=== PATIENT | male | born 1990 | race Hispanic/Latino ===

== ENCOUNTER 2017-09-19 00:49 | Emergency (ER) | payer SELFPAY ==
[2017-09-19 01:08] VITALS: TEMP 97.9
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
[2017-09-19 01:40] LABS: BASO % 0.7 % (0.0-2.0); EOS # 0.5 K/uL (0.0-0.7); EOS % 7.6 % (0.0-4.0); HEMOGLOBIN 14.6 g/dL (12.0-18.0); LYMPH % 32.1 % (20.0-40.0); MEAN CELL VOLUME 91.2 fl (80.0-94.0); MEAN CORPUSCULAR HEMOGLOBIN 31.2 pg (27.0-31.0); MEAN CORPUSCULAR HGB CONC 34.2 g/dL (33.0-37.0); MEAN PLATELET VOLUME 7.4 fl (7.2-11.7); MONO # 0.8 K/uL (0.0-0.8); MONO % 12.5 % (0.0-10.0); NEUT % 47.1 % (50.0-75.0); NRBC % 0.1 % (0.0-0.0); RBC 4.67 Mil/uL (4.40-5.90); RED CELL DISTRIBUTION WIDTH 13.2 % (11.5-14.5); WHITE BLOOD COUNT 6.3 K/uL (4.8-10.8)
[2017-09-19 01:49] LABS: ALB/GLOB RATIO 1.5 (1.0-2.1); ALBUMIN 4.2 g/dL (3.5-5.0); ALT/SGPT 37 U/L (21-72); AST/SGOT 33 U/L (17-59); BLOOD UREA NITROGEN 13 mg/dl (9-20); CALCIUM 9.5 mg/dL (8.4-10.2); GFR AFRICAN-AMERICAN > 60; GFR NON-AFRICAN AMERICAN > 60
[2017-09-19 01:59] VITALS: BP 136/65; RESP 14
[2017-09-19 02:04] LABS: BARBITURATES, UR NEGATIVE (NEGATIVE); BENZODIAZEPINES, UR NEGATIVE (NEGATIVE); OPIATES, UR NEGATIVE (NEGATIVE); PHENCYCLIDINE, UR NEGATIVE (NEGATIVE)
[2017-09-19 03:30] VITALS: PULSE 56
[2017-09-19 03:51] VITALS: O2SAT 98
--- NOTE | 2017-09-19 20:34 | CARD ---
APPROVED REPORT EKG Measurement Heart [id number] <Conclusion> Normal sinus rhythm ST elevation, probably due to early repolarization Borderline ECG
== END 2017-09-19 03:34 | disposition home or self-care (01) ==
LOC: H.ER 00:49
DX: R00.2 Palpitations (principal); I10 Essential (primary) hypertension; F14.10 Cocaine abuse, uncomplicated
CPT/HCPCS: 80053; 84484; 85025; 93005; 99285; G0480

== ENCOUNTER 2018-01-25 18:01 | Emergency (ER) | payer OTHER ==
[2018-01-25 18:46] VITALS: BP 122/75; PULSE 64; RESP 16; TEMP 98.4; O2SAT 100
--- NOTE | 2018-01-25 21:42 | ED PDOC ---
HPI: CCC, URI, Sore Throat Time Seen by Provider: 01/25/18 18:25 Chief Complaint (Nursing): ENT Problem Chief Complaint (Provider): Sore throat x 1 week History Per: Patient History/Exam Limitations: no limitations Onset/Duration Of Symptoms: Days Current Symptoms Are (Timing): Still Present Additional Complaint(s): 27 yo male with no medical problems presents for evaluation of sore throat x 1 week. No fever/chills. Pain worse when swallowing. PT states that he did not take anything for pain or fever. Eating and drinking well. No cough. Past Medical History Reviewed: Historical Data, Nursing Documentation, Vital Signs Vital Signs: Last Vital Signs Temp 98.4 F 01/25/18 18:44 Pulse 64 01/25/18 18:44 Resp 16 01/25/18 18:44 BP 122/75 01/25/18 18:44 Pulse Ox 100 01/25/18 22:05 - Medical History PMH: Anxiety - Surgical History Surgical History: No Surg Hx - Family History Family History: States: Unknown Family Hx - Living Arrangements Living Arrangements: With Family - Home Medications Home Medications: Ambulatory Orders Medication Instructions Recorded predniSONE [predniSONE Tab] 20 mg PO DAILY #12 tab 01/25/18 - Allergies Allergies/Adverse Reactions: Allergies Allergy/AdvReac Type Severity Reaction Status Date / Time No Known Allergies Allergy Verified 01/25/18 18:44 Review of Systems ROS Statement: Except As Marked, All Systems Reviewed And Found Negative Constitutional: Negative for: Fever, Chills ENT: Positive for: Throat Pain Cardiovascular: Negative for: Chest Pain Respiratory: Negative for: Cough Gastrointestinal: Negative for: Nausea, Vomiting, Abdominal Pain Physical Exam - Reviewed Nursing Documentation Reviewed: Yes Vital Signs Reviewed: Yes - Physical Exam Appears: Positive for: Well, Non-toxic, No Acute Distress Head Exam: Positive for: ATRAUMATIC, NORMAL INSPECTION, NORMOCEPHALIC Skin: Positive for: Normal Color, Warm, DRY Eye Exam: Positive for: Normal appearance ENT: Positive for: Normal ENT Inspection. Negative for: Pharyngeal Erythema, Tonsillar Exudate, Tonsillar Swelling Neck: Positive for: Normal, Painless ROM Cardiovascular/Chest: Positive for: Regular Rate, Rhythm Respiratory: Positive for: Normal Breath Sounds. Negative for: Accessory Muscle Use, Respiratory Distress Gastrointestinal/Abdominal: Positive for: Normal Exam, Soft Back: Positive for: Normal Inspection Extremity: Positive for: Normal ROM Neurologic/Psych: Positive for: Alert, Oriented - ECG O2 Sat by Pulse Oximetry: 100 Medical Decision Making Medical Decision Making: Called lab at 2140 - States 10 more minutes for rapid strep results. Disposition - Clinical Impression Clinical Impression: Pharyngitis - Patient ED Disposition Is Patient to be Admitted: No Counseled Patient/Family Regarding: Diagnosis, Need For Followup, Rx Given - Disposition Referrals: Tan Campbell MD [Staff Provider] - Disposition: Routine/Home Disposition Time: 22:04 Condition: STABLE Prescriptions: predniSONE [predniSONE Tab] 20 mg PO DAILY #12 tab Instructions: Sore Throat in Adults Forms: [facility] ([place]), [facility] ED School/Work Excuse
== END 2018-01-25 22:17 | disposition home or self-care (01) ==
LOC: H.ER 18:01
DX: J02.9 Acute pharyngitis, unspecified (principal)

== ENCOUNTER 2018-02-18 02:05 | Emergency (ER) | payer SELFPAY ==
[2018-02-18 02:17] VITALS: BP 129/69; PULSE 118; RESP 18; TEMP 98.2; O2SAT 99
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
== END 2018-02-18 03:20 | disposition left against medical advice (07) ==
LOC: H.ER 02:05
DX: S99.911A Unspecified injury of right ankle, initial encounter (principal); V49.9XXA Car occupant (driver) (passenger) injured in unspecified traffic accident, initial encounter; S80.211A Abrasion, right knee, initial encounter

== ENCOUNTER 2018-02-18 07:50 | Emergency (ER) | payer OTHER ==
[2018-02-18 08:45] VITALS: BMI 25.7
[2018-02-18] MEDS ORDERED: Sodium Chloride 0.9% 1,000 ML IV STA (08:45)
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
[2018-02-18 09:29] LABS: INR 1.1; PROTHROMBIN TIME 12.6 Seconds (9.8-13.1)
[2018-02-18 09:32] LABS: PARTIAL THROMBOPLASTIN TIME 32.7 Seconds (25.6-37.1)
[2018-02-18] MEDS ORDERED: Morphine 4 MG/ML VIAL IV ONE (09:50)
[2018-02-18] MEDS ORDERED: Morphine 4 MG/ML VIAL ONE (09:52)
[2018-02-18 09:53] LABS: BASO % 0.3 % (0.0-2.0); EOS % 0.3 % (0.0-4.0); LYMPH # 1.9 K/uL (1.0-4.3); LYMPH % 19.5 % (20.0-40.0); MEAN CELL VOLUME 89.8 fl (80.0-94.0); MEAN CORPUSCULAR HGB CONC 34.6 g/dL (33.0-37.0); MEAN PLATELET VOLUME 7.5 fl (7.2-11.7); MONO % 10.3 % (0.0-10.0); NEUT # 6.9 K/uL (1.8-7.0); NEUT % 69.6 % (50.0-75.0); RBC 5.14 Mil/uL (4.40-5.90); RED CELL DISTRIBUTION WIDTH 13.1 % (11.5-14.5)
[2018-02-18 10:05] LABS: BLOOD UREA NITROGEN 9 mg/dl (9-20); GFR NON-AFRICAN AMERICAN > 60
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
--- NOTE | 2018-02-18 15:13 | CT ---
Date of service: 02/18/2018 PROCEDURE: CT of the right ankle and foot HISTORY: ankle and foot COMPARISON: Correlation is made to foot and ankle radiographs performed earlier the same day TECHNIQUE: Contiguous axial images of the right ankle and foot were obtained. Coronal and sagittal reformats were generated. This CT exam was performed using one or more of the following dose reduction techniques: Automated exposure control, adjustment of the mA and/or kV according to patient size, and/or use of iterative reconstruction technique. FINDINGS: BONES: Questionable nondisplaced hairline fracture through the medial navicular. SOFT TISSUES: Extensive medial malleolar soft tissue swelling IMPRESSION: Questionable nondisplaced hairline fracture through the medial portion of the navicular with extensive medial malleolar soft tissue swelling. Please note MRI is more sensitive for the detection of ligamentous/tendinous injury.
--- NOTE | 2018-02-18 16:10 | ED PDOC ---
- Laboratory Results Result Diagrams: 02/18/18 09:08 02/18/18 09:08 - ECG O2 Sat by Pulse Oximetry: 100 (RA) Disposition - Clinical Impression Clinical Impression: Ankle pain, Contusion of leg, Foot fracture - POA Present On Arrival: None - Disposition Referrals: Garry Jean DPM [Doctor Pod[facility]] - Disposition: Routine/Home Disposition Time: 16:09 Condition: FAIR Prescriptions: Naproxen [Naprosyn] 500 mg PO Q12H #20 tab Instructions: Foot Fracture (DC)
[2018-02-18 16:19] VITALS: BP 129/78; PULSE 83; RESP 20; TEMP 98.4; O2SAT 97
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
== END 2018-02-18 16:37 | disposition home or self-care (01) ==
LOC: H.ER 07:50
DX: S99.911A Unspecified injury of right ankle, initial encounter (principal); S99.921A Unspecified injury of right foot, initial encounter; S80.10XA Contusion of unspecified lower leg, initial encounter; V49.9XXA Car occupant (driver) (passenger) injured in unspecified traffic accident, initial encounter
CPT/HCPCS: 73564; 73590; 73610; 73630; 73700; 80048; 85025; 85610; 85730; 96374; 99285; J1885; J2270; J7030